=== PATIENT | male | born 1935 | race Caucasian/White ===

== ENCOUNTER 2017-02-09 01:53 | Inpatient (IN) | payer OTHER, MEDICARE ==
[~2017-02-09] VITALS: Ht 188 cm; Wt 99.8 kg
[~2017-02-09 01:53] MED LIST: ACCUPRIL40 M1 PO; ASPIRIN EC81 M1 PO; COUMADIN; NOVOLIN R100 UNIT/1; NOVOLOG100 UNIT/2; SIMVASTATIN20 M2 PO
--- NOTE | 2017-02-09 16:23 | Admission Core Measures ---
Acute Coronary Syndrome Inclusion Criteria ACS Diagnosis No Inpatient Core Measures LDL Reminder: If No, please order W/I first 24hr of stay Congestive Heart Failure Inclusion Criteria CHF Diagnosis No Cerebrovascular accident Inclusion Criteria CVA/TIA Diagnosis No Inpatient Core Measures Bedside Swallow Eval Reminder: If BSE failed, place ST order Antithrombotic Reminder: Order Antithrombotic Medication by end of day 2 Antithrombotic Reminder: Document Reason Antithrombotic Not ordered by end of day 2 AFIB/Flutter Reminder: If Present, add to problem list AFIB/Flutter Reminder: Order Anticoag Medication for pts with AFIB/Flutter Atherosclerosis Reminder: If Present, add to problem list LDL Reminder: If No, please order W/I first 24hr of stay PT Order Reminder: If No, please order Venous thromboembolism Inpatient Core Measures VTE Risk Factors: Age > 40, [facility] prophylaxis d/t No contraindications No VTE Pharm Prophylaxis d/t No contraindications Inclusion Criteria - Per Current guidelines, there needs to be overlap - treatment for the first 5 days of Warfarin therapy. - Parenteral Anticoagulation (IV or SC) needs to be - given along with Warfarin therapy. VTE Diagnosis No VTE Type NONE VTE Confirmed by (Test) NONE Problem List As ranked by this Provider includes Assessment & Plan 1. Sick sinus syndrome 2. Pacemaker 3. Diabetes 4. Hypertension HOME MEDS Home Med List Aspirin (Ecotrin*) 81 MG TABLET.DR 1 TAB PO DAILY CAD (Reported) Quinapril HCl (Accupril) 40 MG TABLET 1 TAB PO DAILY HTN (Reported) Simvastatin (Simvastatin*) 20 MG TABLET 1 TAB PO QPM CHOLESTEROL (Reported)
--- NOTE | 2017-02-09 16:43 | RADIOLOGY REPORT ---
EXAMINATION: XR PORTABLE CHEST CLINICAL INFORMATION: Follow-up pacemaker insertion. COMPARISON: Fluoroscopic view from the operating room. TECHNIQUE: Portable 75 degrees AP view of the chest was obtained. FINDINGS: A left prepectoral pacer device is identified with a unipolar lead overlying the right ventricle. The heart appears enlarged with extensive atherosclerotic calcification of the aortic arch. Lung volumes are diminished with diffuse increase in interstitial markings, a small left-sided pleural effusion probable, and cephalization of the pulmonary vasculature suggesting underlying pulmonary edema. There is moderate symmetric biapical pleural thickening bilaterally. There is no evidence of pneumothorax. Included osseous structures appear largely unremarkable. IMPRESSION: Status post pacer as noted with low lung volumes and cardiomegaly with suspected pulmonary edema.
[2017-02-09 17:54] VITALS: BP 136/80
--- NOTE | 2017-02-09 20:59 | PN- Thoracic Surgery ---
Subjective Subjective: POST-OP NOTE: No complaints. No shortness of breath. No chest pains. Tolerating diabetic diet. No nausea. Voided without difficulty. 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 EKG and chest xray done in pacu. Objective Vital Signs and I&Os Vital Signs Date Time Temp Pulse Resp B/P B/P Pulse O2 O2 Flow FiO2 Mean Ox Delivery Rate 02/09 1754 97.6 81 20 136/80 95 Room Air Physical Exam: General - alert & oriented x 3. comfortable. no acute distress. Lungs - clear bilaterally. no w/r/r. Cardiac - s1s2. irreg irreg. Chest dressing c/d/i. Abdomen - soft. nontender. Extremities - warm bilaterally. no c/c/e. left arm in sling. Results Recent Imaging Studies: EXAMINATION: XR PORTABLE CHEST CLINICAL INFORMATION: Follow-up pacemaker insertion. COMPARISON: Fluoroscopic view from the operating room. TECHNIQUE: Portable 75 degrees AP view of the chest was obtained. FINDINGS: A left prepectoral pacer device is identified with a unipolar lead overlying the right ventricle. The heart appears enlarged with extensive atherosclerotic calcification of the aortic arch. Lung volumes are diminished with diffuse increase in interstitial markings, a small left-sided pleural effusion probable, and cephalization of the pulmonary vasculature suggesting underlying pulmonary edema. There is moderate symmetric biapical pleural thickening bilaterally. There is no evidence of pneumothorax. Included osseous structures appear largely unremarkable. IMPRESSION: Status post pacer as noted with low lung volumes and cardiomegaly with suspected pulmonary edema. DICTATED BY: ALESSIA EAGLE MD DATE/TIME DICTATED:02/09/171636 MERCHANDISE DISTRIBUTOR:MARILU DATE/TIME TRANSCRIBED:02/09/171636 Assessment/Plan Assessment/Plan This 80 year old male with hx htn, iddm, afib, is POD#0 s/p pacemaker for sick sinus syndrome tolerating diabetic diet. d/c iv fluids ekg and cxr reviewed pedro-operative antibiotics, ancef x 2 doses hep sc - dvt ppx hold coumadin for now. restart as per accuchecks / ss coverage f/u labs and ekg in am ?call will d/w Core Measures/Miscellaneous Venous Thromboembolism VTE Risk Factors: Age > 40, Surgery VTE Contraindications: No Contraindications VTE Diagnosis: No VTE Type: NONE VTE Confirmed by (Test): NONE Beta Noni Is Beta Noni a Home Med? No Antibiotics Is Patient on Antibiotics? Yes If Yes: prophylaxis
--- NOTE | 2017-02-09 21:31 | RADIOLOGY REPORT ---
EXAMINATION:\H\ \N\XR CHEST CLINICAL INFORMATION: Pacemaker insertion COMPARISON: None TECHNIQUE: Portable AP FINDINGS: Pacer wire overlies right ventricle. There is no pneumothorax. Exam is demonstrating vascular congestion/early CHF. Left basilar opacities and right basilar opacities may be related to edema IMPRESSION: Pacer wire overlying the right ventricle. No pneumothorax. Findings suggest CHF
[2017-02-10 00:31] VITALS: BP 146/74
[2017-02-10 07:58] VITALS: BP 136/78
[2017-02-10 08:12] LABS: ABSOLUTE BASOPHIL COUNT 0 /CUMM (0.0-0.2); ABSOLUTE EOSINOPHIL COUNT 0.3 /CUMM (0.0-0.7); ABSOLUTE GRANULOCYTE CT 4.2 /CUMM (1.4-6.5); ABSOLUTE LYMPH COUNT 1.7 /CUMM (1.2-3.4); ABSOLUTE MONOCYTE COUNT 0.7 /CUMM (0.10-0.60); BASOPHIL % 0.6 % (0.0-2.0); EOSINOPHIL % 4.5 % (0-5); MEAN CORPUSCULAR HGB 33.4 PG (27.0-31.0); MEAN CORPUSCULAR HGB CONC 33.1 G/DL (33.0-37.0); MEAN CORPUSCULAR VOLUME 100.9 FL (80.0-94.0); PLATELET COUNT 162 /CUMM (130-400); RBC DISTRIBUTION WIDTH 14.9 % (11.5-14.5); RED BLOOD CELL CT 3.37 /CUMM (4.70-6.10); WHITE BLOOD CELL COUNT 6.9 /CUMM (4.8-10.8)
--- NOTE | 2017-02-10 09:57 | PN- Thoracic Surgery ---
Subjective Subjective: Patient is POD #1 s/p pacemaker placement for sick sinus syndrome. Tolerating regular diet. Ambulating without assistance. Pain well controlled. Pacer interrogated this morning with some irregular ventricular capture changes. Objective Vital Signs and I&Os Vital Signs Date Time Temp Pulse Resp B/P B/P Pulse O2 O2 Flow FiO2 Mean Ox Delivery Rate 02/10 0855 89 136/78 02/10 0758 98.3 83 20 136/78 92 Room Air 02/10 0031 98.1 78 16 146/74 94 Room Air 02/09 1754 97.6 81 20 136/80 95 Room Air Intake & Output 02/10 1600 02/10 0800 02/10 0000 02/09 1600 02/09 0800 02/09 0000 Intake Total 300 500 Output Total 600 Balance 300 -100 Intake, IV 100 Intake, Oral 200 500 Output, Urine 600 Patient 220 lb Weight Physical Exam: Gen: AAox3 in NAD Cor: S1+S2+ Lungs: CTA michael. Pressure dressing removed from left anterior chest. Tegaderm dressing intact. No surrounding erythema or drainage noted. No soft tissue mass to suggest hematoma. Abd: soft, NT, ND, +Bs x4 Ext: no edema or calf tenderness to michael lower extremities. Current Medications: Current Medications Sig/George Start time Last Medication Dose Route Stop Time Status Admin Acetaminophen 650 MG Q6PRN PRN 02/09 1745 AC PO Aspirin Buffered 81 MG DAILY 02/10 1000 AC PO Atorvastatin Calcium 10 MG 1700 02/09 1700 AC 02/09 PO 2035 Cefazolin Sodium 2,000 MG Q8H 02/09 2300 DC 02/10 Sodium Chloride 100 ML IV 02/10 0729 0605 Dextrose/Sodium 1,000 ML Q10H 02/09 1745 DC Chloride IV Docusate Sodium 100 MG DAILY 02/10 1000 AC 02/10 PO 0852 Fentanyl Citrate 100 MCG .STK-MED ONE 02/09 1421 DC IM 02/09 1422 Heparin Sodium 5,000 UNIT Q8 02/10 0600 AC 02/10 (Porcine) SC 0605 Insulin Aspart 0 TIDAC 02/10 0800 AC 02/10 SC 0825 Insulin Aspart 0 AT BEDTIME 02/09 2200 AC 02/09 SC 2158 Insulin Human Regular 0 TIDAC/HS 02/09 1700 DC 02/09 SC 1850 Lisinopril 40 MG DAILY 02/10 1000 AC 02/10 PO 0855 Ondansetron HCl 4 MG Q8P PRN 02/09 174 AC IV Oxycodone/ 1 TAB Q4-6 PRN PRN 02/09 174 AC Acetaminophen PO Oxycodone/ 2 TAB Q4-6 PRN PRN 02/09 174 AC Acetaminophen PO Patient Medication 1 UNIT ONE NR 02/09 1800 [facility] ED 02/09 183 Patient Medication 1 UNIT ONE NR 02/09 1800 [facility] ED 02/09 183 Patient Medication 1 UNIT ONE NR 02/09 1800 [facility] ED 02/09 183 Results Last 48 Hours of Labs: Laboratory Tests 02/10 0650 Chemistry Sodium (137 - 145 mmol/L) 141 Potassium (3.5 - 5.1 mmol/L) 5.0 Chloride (98 - 107 mmol/L) 105 Carbon Dioxide (22 - 30 mmol/L) 28 Anion Gap (5 - 16) 9 BUN (9 - 20 mg/dL) 37 H Creatinine (0.7 - 1.2 mg/dL) 2.0 H Estimated GFR (>60 ml/min) 32 L BUN/Creatinine Ratio (7 - 25 %) 18.5 Glucose (65 - 99 mg/dL) 163 H Magnesium (1.6 - 2.3 mg/dL) 1.6 Lxi-H-Vafwvajubyp Pept (<125 pg/mL) 3340 H Hematology CBC w Diff NO MAN DIFF REQ WBC (4.8 - 10.8 /CUMM) 6.9 RBC (4.70 - 6.10 /CUMM) 3.37 L Hgb (14.0 - 18.0 G/DL) 11.3 L Hct (42 - 52 %) 34.0 L MCV (80.0 - 94.0 FL) 100.9 H MCH (27.0 - 31.0 PG) 33.4 H RDW (11.5 - 14.5 %) 14.9 H Plt Count (130 - 400 /CUMM) 162 MPV (7.4 - 10.4 FL) 10.0 Gran % (42.2 - 75.2 %) 61.0 Lymphocytes % (20.5 - 51.1 %) 23.9 Monocytes % (1.7 - 9.3 %) 10.0 H Eosinophils % (0 - 5 %) 4.5 Basophils % (0.0 - 2.0 %) 0.6 Absolute Granulocytes (1.4 - 6.5 /CUMM) 4.2 Absolute Lymphocytes (1.2 - 3.4 /CUMM) 1.7 Absolute Monocytes (0.10 - 0.60 /CUMM) 0.7 H Absolute Eosinophils (0.0 - 0.7 /CUMM) 0.3 Absolute Basophils (0.0 - 0.2 /CUMM) 0 PUBS MCHC (33.0 - 37.0 G/DL) 33.1 Assessment/Plan Assessment/Plan A: POD #1 s/p pacemaker placement for SSS; AVSS. Irregular ventricular captures. Plan: NPO p MN. Will have [employer] interrogate pacer again in am. If ventricular capturing is still off, will need adjustment of leads in OR. Will check CXR now to confirm placement of wires. Plan discussed with patient and Dr. Fields. Core Measures/Miscellaneous Venous Thromboembolism VTE Risk Factors: Age > 40, Surgery VTE Contraindications: No Contraindications VTE Diagnosis: No VTE Type: NONE VTE Confirmed by (Test): NONE Beta Noni Is Beta Noni a Home Med? No Antibiotics Is Patient on Antibiotics? Yes If Yes: prophylaxis
--- NOTE | 2017-02-10 12:28 | Operative Report ---
Operative/Inv Procedure Report Surgery Date: 02/09/17 Name of Procedure: MRI compatible VVI pacemaker Pre-Operative Diagnosis: Symptomatic bradycardia with chronic atrial fibrillation Post-Operative Diagnosis: Same Estimated Blood Loss: less than 50ml Surgeon/Engineering Executive: WES BUCHANAN,OIDN Diaz JR Anesthesia: local monitored anesthesi Operative/Procedure Note Note: After placing monitoring lines the patient's left chest and shoulder were prepped and draped in a sterile fashion. 1% lidocaine was used as local anesthetic. Incision was made in the deltopectoral groove and carried down to prepectoralis fascia. Dissection was done in the groove and there was no cephalic vein isolated. The patient was then placed in Trendelenburg and the subclavian vein was entered with a needle and a wire was passed under fluoroscopic guidance into the right atrium. The sheath dilator was passed over the wire and a Medtronic pacemaker lead model #[id number] was then advanced the pulmonary outflow tract under fluoroscopic guidance. The lead was withdrawn into the right ventricular cavity and positioned at the apex. R waves were measured at 7.8 mV. The pacing threshold was at 0.3 V with a current of 0.2 mA and an impedance of 967 ohms. Leads were secured to the prepectoralis fascia with Ethibond sutures. They were then connected to an MRI compatible single chamber pacemaker. Pacemaker pocket was fashioned over the fascia. It was irrigated with antibiotic irrigation. Hemostasis was achieved with electrocautery and surgical clips. The wound was closed in layers with running Vicryl suture followed by running Vicryl subcuticular suture. The patient tolerated the procedure well and brought to the recovery room in stable condition.
--- NOTE | 2017-02-10 12:29 | PN- Thoracic Surgery ---
Surgical Brief Attending Note Brief Attending Note: Pacemaker interrogation this morning shows an increase in the pacing threshold to 1.6 V with a decline in the R wave sensing. The patient will get a chest x- ray and be reevaluated with interrogation later today and tomorrow morning. If the thresholds remain high then he will need lead repositioning tomorrow. All of this is explained to the patient and the family and they understand and agree.
--- NOTE | 2017-02-10 14:29 | RADIOLOGY REPORT ---
EXAMINATION: XR PORTABLE CHEST CLINICAL INFORMATION: Evaluate placement of ventricular pacer leads. Ventricular capture irregular on interrogation. COMPARISON: 02/09/2017 TECHNIQUE: Portable AP view of the chest was obtained. FINDINGS: Lung volumes are low. The film is underpenetrated. Again seen is a single lead left pectoral pacemaker with a continuous, intact leads. The terminus of the lead projects over the expected location of the right ventricular apex. The course and location of the lead are unchanged from the prior study 02/09/2017. Lung volumes are low. There is worsened dense retrocardiac consolidation which could represent atelectasis, aspiration, or pneumonia. Patchy right base opacity is likely atelectasis. There is prominence of the pulmonary vascularity suggesting mild pulmonary edema. Small pleural effusions are possible. No pneumothorax seen. The cardiac silhouette is enlarged. There are degenerative changes of the shoulders. IMPRESSION: Single lead left pectoral pacemaker. The terminus of the lead projects over the expected location of the right ventricular apex. Low lung volumes. Worsened dense retrocardiac consolidation which could represent atelectasis, aspiration, or pneumonia.
[2017-02-10 15:30] VITALS: BP 134/82
--- NOTE | 2017-02-10 16:21 | Patient Discharge Instructions ---
Discharge Instructions General Discharge Information You were seen/treated for: SICK SINUS SYNDROME You had these procedures: PACEMAKER PLACEMENT Watch for these problems: INCREASED REDNESS OR DRAINAGE, TEMPERATURE GREATER THAN 101F, CHEST PAIN OR SHORTNESS OF BREATH Do not soak the wound: Yes Daily wet to dry dressings: No No bath, but you may shower: Yes Other wound care: Remove plastic dressing and gauze tomorrow. You may shower. Pat area dry, do not rub as it will hurt. Special Instructions: CALL DR PADGETT'S OFFICE REGARDING COUMADIN THERAPY Diet Continue normal diet: Yes Activity Activity Self Limited: Yes (wear L arm sling for comfort) Acute Coronary Syndrome Inclusion Criteria At DC or during hospital stay patient has or had the following: ACS DIAGNOSIS No Discharge Core Measures Meds if any: Prescribed or Continued at Discharge Meds if any: NOT Prescribed or Continued at Discharge Congestive Heart Failure Inclusion Criteria At DC or during hospital stay patient has or had the following: CHF DIAGNOSIS No Discharge Core Measures Meds if any: Prescribed or Continued at Discharge Meds if any: NOT Prescribed or Continued at Discharge Cerebrovascular accident Inclusion Criteria At DC or during hospital stay patient has or had the following: CVA/TIA Diagnosis No Discharge Core Measures Meds if any: Prescribed or Continued at Discharge Meds if any: NOT Prescribed or Continued at Discharge Venous thromboembolism Inclusion Criteria VTE Diagnosis No VTE Type NONE VTE Confirmed by (Test) NONE Discharge Core Measures - Per Current guidelines, there needs to be overlap - treatment for the first 5 days of Warfarin therapy. - If discharged on Warfarin prior to 5 days of - overlap therapy, the patient will need to be - assessed for post discharge needs including - *Post discharge parental anticoagulation - *Warfarin and/or parental anticoagulation education - *Follow up date to check INR post discharge At least 5 days overlap therapy as Inpatient No Meds if any: Prescribed or Continued at Discharge Note: Overlap Therapy is Warfarin and Anticoagulant Meds if any: NOT Prescribed or Continued at Discharge
[2017-02-11 00:52] VITALS: BP 142/68
--- NOTE | 2017-02-11 05:52 | NUR ---
AT APROXIMATELY 0100 PATIENT HAD 6 BEATS V-TACH. VSS, PATIENT DENIES CP. SURGICAL MADDISON ABREU NOTIFIED. BEP WITH MAG ORDERED FOR 4 AM. MG 1.6. 1 GRAM MAG INFUSING ORDERED.
--- NOTE | 2017-02-11 09:06 | RADIOLOGY REPORT ---
EXAMINATION: CHEST 1 VIEW CLINICAL INFORMATION: Status post pacer revision. COMPARISON: 02/10/2017. TECHNIQUE: An AP view of the chest is provided. FINDINGS: The cardiac silhouette is enlarged, but stable. Pacer lead is in unchanged position. The mediastinal and hilar contours are unremarkable. There are neither pleural effusions nor pneumothoraces. There is stable moderate interstitial prominence present throughout both lungs. There are no consolidations. The osseous structures are unremarkable. IMPRESSION: Stable cardiomegaly with pacer leads in place. Stable degree of moderate diffuse interstitial prominence.
--- NOTE | 2017-02-11 09:27 | Operative Report ---
Operative/Inv Procedure Report Surgery Date: 02/11/17 Name of Procedure: Repositioning pacemaker lead Pre-Operative Diagnosis: Symptomatic bradycardia. Failure to capture ventricular lead Post-Operative Diagnosis: Same Estimated Blood Loss: none Surgeon/Oil Developer: WES BUCHANAN,ODIN Diaz JR Anesthesia: local monitored anesthesi Operative/Procedure Note Note: After placement of monitoring lines the patient's incision was reprepped and draped in a sterile fashion. Fluoroscopy showed that the lead appeared to have had some of the slack taken out of it in the intracardiac chamber. The rest of the lead throughout the innominate vena caval was well-positioned. The incision was reopened and the generator explanted. The lead was freed from its ties and a stylette was passed. A slight amount of traction withdrew the lead from the ventricular position. It was repositioned with of more slack of then had been done previously. The lead was tested in this position and the pacing threshold was at 0.5 V R waves were measured at 8.4 mV. The impedance was 646 ohms. The lead was reconnected to the generator and secured once again with Ethibond sutures and the prepectoralis area. Everything was flushed with antibiotic irrigation. There was good hemostasis and electrocautery was used to dry up the soft tissue. The wound was closed with a running deep Vicryl suture followed by running running Vicryl subcuticular suture. It was dressed with a dry sterile dressing and a pressure dressing. The patient tolerated procedure well and was brought to the recovery room in stable condition. In the recovery room the device was re-interrogated and it was found to have the same parameters as in the operating room. A chest x-ray in the recovery room showed an improved heel in the lead with good positioning of the tip.
--- NOTE | 2017-02-11 09:34 | RADIOLOGY REPORT ---
EXAMINATION:\H\ \N\XR CHEST CLINICAL INFORMATION: Pacemaker revision COMPARISON: Chest x-ray of February 11, 2017 and studies dating back to February 09, 2017 TECHNIQUE: Limited AP C-arm film overlying the heart. FINDINGS: Distal aspect of pacer lead is seen overlying the right ventricular outline. IMPRESSION: Distal aspect of the pacemaker lead overlying the right ventricle.
[2017-02-11 16:00] VITALS: BP 130/60
--- NOTE | 2017-02-11 17:14 | PN- Thoracic Surgery ---
Subjective Subjective: Pt is now POD #0 s/p repositioning of pacemaker lead. He was seen earlier this afternoon around 2:45 pm and had no complaints. Denies significant pain. Tolerating po. No nausea. No UE numbness or tingling. Objective Vital Signs and I&Os Vital Signs Date Time Temp Pulse Resp B/P B/P Pulse O2 O2 Flow FiO2 Mean Ox Delivery Rate 02/11 1600 98.2 83 18 130/60 95 Room Air 02/11 1252 98 142/68 02/11 0052 97.7 98 18 142/68 98 Room Air Intake & Output 02/11 1600 02/11 0800 02/11 0000 02/10 1600 02/10 0800 02/10 0000 Intake Total 100 400 560 300 500 Output Total 500 600 Balance -400 400 560 300 -100 Intake, IV 100 100 Intake, Oral 0 400 560 200 500 Output, Urine 500 600 Patient 220 lb Weight Physical Exam: Gen: Pt is awake and alert. NAD. Chest: L chest dressing is c/d/i. There is no visible surrounding echhymosis, erythema. No crepitus. Lungs are cta. Ext: LUE sensation is intact. Hand and arm are warm. Radial pulse is 2+. 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 Assessment/Plan Assessment/Plan Pt is an 86 yo M who is POD #1 s/p placement of permanent pacemaker for Symptomatic bradycardia with chronic atrial fibrillation, complicated by failure to capture ventricular lead. Pt is now POD #0 s/p repositioning of lead. He tolerated the procedure well. Plan: -Continue sling to LUE for immobilization. -Leave surgical dressing in place. -Ok to resume diet. -Percocet or tylenol as needed for pain. -Ancef q12 hours (renal dosing) until discharge due to revision of foreign body. -Ok to resume ASA and home meds. Pt was on Coumadin, but has stated to other staff members that he is supposed to be off of it. Will discuss with cardiology (Dr. Bedolla) in the morning. Core Measures/Miscellaneous Venous Thromboembolism VTE Risk Factors: Age > 40, Surgery VTE Contraindications: No Contraindications VTE Diagnosis: No VTE Type: NONE VTE Confirmed by (Test): NONE Beta Noni Is Beta Noni a Home Med? No Antibiotics Is Patient on Antibiotics? Yes If Yes: prophylaxis
[2017-02-12 00:07] VITALS: BP 122/60
[2017-02-12 08:00] VITALS: BP 118/68
[2017-02-12 08:01] LABS: ABSOLUTE BASOPHIL COUNT 0.1 /CUMM (0.0-0.2); ABSOLUTE EOSINOPHIL COUNT 0.4 /CUMM (0.0-0.7); ABSOLUTE GRANULOCYTE CT 4.5 /CUMM (1.4-6.5); ABSOLUTE LYMPH COUNT 1.8 /CUMM (1.2-3.4); ABSOLUTE MONOCYTE COUNT 0.8 /CUMM (0.10-0.60); BASOPHIL % 0.7 % (0.0-2.0); GRANULOCYTE % 59.9 % (42.2-75.2); HEMATOCRIT 34.4 % (42-52); MEAN CORPUSCULAR HGB 33.6 PG (27.0-31.0); MEAN CORPUSCULAR HGB CONC 33.3 G/DL (33.0-37.0); MEAN CORPUSCULAR VOLUME 100.9 FL (80.0-94.0); MEAN PLATELET VOLUME 10.1 FL (7.4-10.4); PLATELET COUNT 152 /CUMM (130-400); RBC DISTRIBUTION WIDTH 14.8 % (11.5-14.5); RED BLOOD CELL CT 3.41 /CUMM (4.70-6.10); WHITE BLOOD CELL COUNT 7.5 /CUMM (4.8-10.8)
--- NOTE | 2017-02-12 08:02 | PN- Thoracic Surgery ---
Subjective Subjective: POD 1 repositioning pm lead Pt without complaints overnight Denies any cp, sob, palp, nausea Some mild left shoulder pain at surgical site but tolerable without pain meds Objective Vital Signs and I&Os Vital Signs Date Time Temp Pulse Resp B/P B/P Pulse O2 O2 Flow FiO2 Mean Ox Delivery Rate 02/12 0007 98.1 79 18 122/60 95 Room Air 02/12 0000 96 Room Air 02/11 1600 98.2 83 18 130/60 95 Room Air 02/11 1252 98 142/68 Intake & Output 02/12 0800 02/12 0000 02/11 1600 02/11 0800 02/11 0000 02/10 1600 Intake Total 480 240 905 100 400 560 Output Total 300 950 800 Balance 480 -60 -45 -700 400 560 Intake, IV 225 100 Intake, Oral 480 240 680 0 400 560 Number 0 0 Bowel Movements Output, Urine 300 950 800 Physical Exam: General: alert and oriented times three Chest: clear anteriorly bilaterally, irr/irr Abd: soft, good bs Ext: warm, no edema, LUE in sling- positive sensate, good strength Wound: dressed, dry Tele: irr/irr with frequent pvc's, paced beats Assessment/Plan Assessment/Plan 81 yo male s/p ppm placement and repositioning of leads Pt has questions regarding anticoagulation. Has been on coumadin however he is under the impression that Dr Lin's office wanted to start him on a different med post op. Follow up with Dr Lin regarding anticoagulation ?Interrogation of ppm this morning Likely dc later today if all okay Core Measures/Miscellaneous Venous Thromboembolism VTE Risk Factors: Age > 40, Surgery VTE Contraindications: No Contraindications VTE Diagnosis: No VTE Type: NONE VTE Confirmed by (Test): NONE Beta Noni Is Beta Noni a Home Med? No Antibiotics Is Patient on Antibiotics? Yes If Yes: prophylaxis
[2017-02-12] MEDS ORDERED: PERCOCET 5-3251 EACH PO (09:28)
--- NOTE | 2017-02-12 12:32 | NUR ---
LATE ENTRY: PT HAD 3 BEAT RUN AND SURG PA GISELA Butt WAS INFORMED
--- NOTE | 2017-02-21 10:57 | Surgical Discharge Summary ---
Visit Information Visit Dates Admission Date: 02/09/17 Discharge Date: 02/12/17 History of Present Illness Chief Complaint: The patient is admitted with symptomatic bradycardia for placement of a permanent pacemaker lead. 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 Home Who Do You Live With? Spouse What is Your Primary Language? [place] Citizen Review of Systems: He has had episodic lightheadedness when arising quickly and turning his head. He is had no michael syncope. Physical Exam: Breath sounds clear. Irregular rhythm and rate. Hospital Course Course Attending Physician: WES BUCHANAN,ODIN Diaz JR Primary Care Physician: SHARIF BUCHANAN,[facility] Course: Patient was admitted on 421 and underwent placement of an MRI compatible single chamber pacemaker. The procedure was uncomplicated. On the morning of the first postoperative day interrogation showed variable capture and sensing on the lead. A chest x-ray showed no appreciable change in the lead position. On the second postoperative day repeat interrogation was done showing continued instability. The patient was taken back to the operating room on 423 with repositioning of the lead. He remained stable overnight and on interrogation on 02/12/2017 he was found to have a well-functioning device in regards to pacing threshold and sensing. He was then discharged home with follow-up scheduled in 2 weeks in pacemaker clinic as an outpatient. Complications: Lead dislodgment Allergies: Coded Allergies: No Known Allergies (02/07/17) Disposition Summary Disposition Principal Diagnosis: Permanent atrial fibrillation with symptoms Additional Diagnosis: Symptomatic bradycardia Discharge Disposition: home or self care Discharge Instructions General Discharge Information Code Status: Full Code Patient's Diet: Usual Patient's Activity: Normal except minimal use of the left arm for 2 weeks Follow-Up Instructions/Appts: Outpatient pacemaker clinic in 2 weeks Medications at Discharge Discharge Medications: Stop taking the following medications: [COUMADIN] DAILY Continue taking these medications: Quinapril HCl (Accupril) 40 MG TABLET 1 Tablet ORAL DAILY Comments: Last Taken:02/12/17 GIVEN LISINOPRIL Time:1000 Simvastatin (Simvastatin*) 20 MG TABLET 1 Tablet ORAL Every night Comments: Last Taken:02/11/17 Time:5PM Aspirin (Ecotrin*) 81 MG TABLET. 1 Tablet ORAL DAILY Comments: Last Taken:02/12/17 Time:1000 Insulin Regular (Novolin R Inj) 1,000 UNITS/10 ML HANH Instructions: 14 UNITS IN AM .... 8 UNITS IM PM Insulin Aspart (Novolog) 100 UNIT/ML VIAL Instructions: 6 UNITS IM AM..... 14 UNITS IM PM Start taking the following new medications: Oxycodone HCl/Acetaminophen (Percocet 5-325 MG Tablet) 5 MG-325 MG TABLET 1 Tablet ORAL EVERY 4 HOURS NEEDED as needed for PAIN Qty = 20 No Refills
== END 2017-02-12 13:02 | DRG 243 ==
LOC: SDA 01:53 → CANRESERV 16:05 → ENRESERV 16:05 → SDA 17:15 → 1NO 17:42 → ENPENDDIS 02-12 09:33 → 1NO 02-12 13:02
PROVIDERS: Physician Assistant; Physician Assistant Surgical; ADMIT Thoracic Surgery (Cardiothoracic Vascular Surgery)
PROC: 0JH604Z Insertion of Pacemaker, Single Chamber into Chest Subcutaneous Tissue and Fascia, Open Approach (ICD-10-PCS; principal; 2017-02-09)
PROC: 02HK3JZ Insertion of Pacemaker Lead into Right Ventricle, Percutaneous Approach (ICD-10-PCS; principal; 2017-02-09)
PROC: 02WA3MZ Revision of Cardiac Lead in Heart, Percutaneous Approach (ICD-10-PCS; 2017-02-11)
DX: I49.5 Sick sinus syndrome (principal); T82.897A Other specified complication of cardiac prosthetic devices, implants and grafts, initial encounter; I48.2 Chronic atrial fibrillation; E11.9 Type 2 diabetes mellitus without complications; I25.5 Ischemic cardiomyopathy; I25.10 Atherosclerotic heart disease of native coronary artery without angina pectoris; I25.2 Old myocardial infarction; E78.5 Hyperlipidemia, unspecified; Y83.8 Other surgical procedures as the cause of abnormal reaction of the patient, or of later complication, without mention of misadventure at the time of the procedure; Z79.4 Long term (current) use of insulin; I10 Essential (primary) hypertension; Z87.891 Personal history of nicotine dependence
CPT/HCPCS: 1NSP; 36415; 82436; 93005; 93010; C1786; C1898; J0690; J1644; J1815; J2405; J7042

== ENCOUNTER 2018-01-23 16:22 | Inpatient (IN) | payer OTHER, BC, MEDICARE ==
[~2018-01-23] VITALS: Ht 188 cm; Wt 104.8 kg
[~2018-01-23 16:22] MED LIST changes: +PERCOCET 5-3251 EACH PO
--- NOTE | 2018-01-23 18:41 | ED CARDIAC/CP/PALPITATIONS ---
History of Present Illness General Chief Complaint: Abdominal Pain/Flank Pain Stated Complaint: RIGHT SIDE ABD PAIN Source: patient Exam Limitations: no limitations Vital Signs & Intake/Output Vital Signs & Intake/Output Vital Signs Date Time Temp Pulse Resp B/P B/P Pulse O2 O2 Flow FiO2 Mean Ox Delivery Rate 01/23 2213 97.8 82 18 166/77 95 Room Air 01/23 2143 97.8 62 18 184/81 97 01/23 1951 98.0 72 18 169/80 97 Room Air 01/23 1924 97 Room Air 01/23 1643 99.1 73 18 153/98 95 Room Air Allergies Coded Allergies: No Known Allergies (02/07/17) Reconcile Medications Apixaban (Eliquis) 2.5 MG TABLET 1 TAB PO BID BLOOD THINNER (Reported) Aspirin (Ecotrin*) 81 MG TABLET. 1 TAB PO DAILY CAD (Reported) Insulin Aspart (Novolog) 100 UNIT/ML VIAL 6 UNITS SC QAM DM (Reported) Insulin Aspart (Novolog) 100 UNIT/ML VIAL 14 UNITS SC QPM DM (Reported) Insulin Regular, Human (NovoLIN R) 100 UNIT/ML VIAL 14 UNITS SC QAM DM ( Reported) Insulin Regular, Human (NovoLIN R) 100 UNIT/ML VIAL 8 UNITS SC QPM DM ( Reported) Quinapril HCl (Accupril) 40 MG TABLET 1 TAB PO DAILY HTN (Reported) Simvastatin (Simvastatin*) 20 MG TABLET 1 TAB PO QPM CHOLESTEROL (Reported) Triage Note: RECEIVED 82 YO MALE C/O INTERMITTENT RIGHT SIDED CHEST PAIN, STARTED APPROX 12 NOON TODAY. NO SOB OR DIAPHORESIS. PT HAS HAD LEFT LATERAL CHEST PAIN INTERMITTENTLY X FEW WEEKS AND DX WITH STRAIN BY DR MARIE. Triage Nurses Notes Reviewed? yes Onset: Abrupt Duration: hour(s): Quality/Severity: moderate, sharp HPI: Pt is a 82 yo WM with a PMH significant for CAD, DC x 3, atrial fibrillation (on eliquis), skin malignancy s/p excision, who presents to ED with lower right sided chest pain since 12pm today. Pt states the pain is intermittent and sharp. It is not triggered or relieved by anything. The pain does not radiate anywhere. He denies recent strenuous activity or injury to the site. The pt denies any CP, nausea/fevers, anorexia, SOB, abdominal pain, rashes. Pt denies hx of gerd, gallstones, biliary tree issues, or liver disease. He states he has a hx of muscle strains in his back and recently diagnosed with a lower left sided chest muscle strain approximately 3 wks ago. (Emile Estrada) Past History Travel History Traveled to [place] past 21 day No Medical History Any Pertinent Medical History? 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 No (Emile Estrada) Review of Systems Review of Systems Constitutional: Denies: see HPI. EENTM: Denies: see HPI. Respiratory: Reports: cough. Denies: see HPI. Cardiovascular: Reports: see HPI. GI: Denies: see HPI. Genitourinary: Denies: see HPI. Musculoskeletal: Reports: see HPI. Skin: Denies: rash. Neurological/Psychological: Denies: see HPI. Hematologic/Endocrine: Reports: no symptoms. Immunologic/Allergic: Reports: no symptoms. All Other Systems: Reviewed and Negative (Emile Estrada) Physical Exam Physical Exam General Appearance: well developed/nourished, no apparent distress, alert, awake , comfortable Head: atraumatic, normal appearance Eyes: Bilateral: EOMI. Ears, Nose, Throat: normal ENT inspection Neck: normal inspection Respiratory: normal breath sounds, chest non-tender, no respiratory distress, no obvious deformities, masses, rashes to the chest wall. Pain is not reproducible at approx the 11th-12th rib. Cardiovascular: irregularly irregular Gastrointestinal: soft, non-tender, no organomegaly Back: normal inspection, normal range of motion Extremities: normal inspection Neurologic/Psych: no motor/sensory deficits, awake, alert Skin: intact, normal color, warm/dry Core Measures ACS in differential dx? Yes CVA/TIA Diagnosis No Sepsis Present: No Sepsis Focused Exam Completed? No (Emile Estrada) Progress Differential Diagnosis: AMI, aortic dissection, cholecystitis, costochondritis, hyperthyroid, musculoskeletal pain, myocarditis, pancreatitis, pericarditis, pneumonia, pneumothorax, pulmonary embolism, PUD/GERD Plan of Care: Orders Procedure Date/time Status Regular Diet 01/24 B Active TROPONIN LEVEL 01/24 0700 Active EKG 01/24 0700 Active TROPONIN LEVEL 01/24 0100 Active EKG 01/24 0100 Active Pathway - chart 01/23 223 Active House Staff 01/23 223 Active Code Status 01/23 223 Active Intake & Output 01/23 222 Active Patient Data 01/23 2133 Active OXYGEN SETUP (GEN) 01/23 2131 Active Saline Lock 01/23 2131 Active Admit to inpatient 01/23 2131 Active Vital Signs 01/23 2131 Active Activity/Ambulation 01/23 2131 Active Code Status 01/23 2131 Complete Add-on Test (ER Only) 01/23 2050 Active Add-on Test (ER Only) 01/24 2048 Active LIPASE 01/23 185 Complete B-TYPE NATRIURETIC PEP (BNP) 01/23 185 Complete Telemetry/Tilting Saw Operator 01/23 1836 Active TROPONIN LEVEL 01/23 1836 Complete COMPREHENSIVE METABOLIC PANEL 01/23 1836 Complete CBC WITHOUT DIFFERENTIAL 01/23 183 Complete EKG 01/23 1624 Active VTE Mechanical Prophylaxis 01/23 UNK Active Current Medications Sig/George Start time Last Medication Dose Stop Time Status Admin Atorvastatin Calcium 10 MG 1700 01/24 1700 UNVr (Lipitor) Apixaban 2.5 MG BID 01/24 1000 UNVr (Eliquis) Aspirin Buffered 81 MG DAILY 01/24 1000 UNVr (Ecotrin) Lisinopril 10 MG DAILY 01/24 1000 UNVr (Prinivil) Laboratory Tests 01/23/18 1857: Anion Gap 16, Estimated GFR 32 L, BUN/Creatinine Ratio 19.5, Glucose 160 H, Calcium 10.0, Total Bilirubin 0.7, AST 21, ALT 25, Alkaline Phosphatase 68, Troponin I 0.02, Nvn-B-Hbpdxpclwin Pept 6560 H, Total Protein 8.4 H, Albumin 4.3, Globulin 4.1, Albumin/Globulin Ratio 1.0 L, Lipase 56, CBC w Diff NO MAN DIFF REQ, RBC 3.75 L, MCV 100.2 H, MCH 32.5 H, MCHC 32.4 L, RDW 14.5, MPV 9.9, Gran % 56.2, Lymphocytes % 28.9, Monocytes % 11.0 H, Eosinophils % 3.3, Basophils % 0.6, Absolute Granulocytes 4.1, Absolute Lymphocytes 2.1, Absolute Monocytes 0.8 H, Absolute Eosinophils 0.2, Absolute Basophils 0 Diagnostic Imaging: Viewed by Me: Radiology Read. Discussed w/RAD: Radiology Read. Radiology Impression: PATIENT: KATY SANDERS PRESENT AGE: 82 PATIENT ACCOUNT NO: [id number] : 33 LOCATION: [facility] ORDERING PHYSICIAN: Emile WASHBURN SERVICE DATE: 01/23/18 EXAM TYPE: RAD - XRY-CHEST XRAY, TWO VIEWS EXAMINATION: XR CHEST CLINICAL INFORMATION: Chest pain. COMPARISON: Chest x-ray from 02/11/2017. TECHNIQUE: 2 views of the chest were obtained. FINDINGS: Cardiomegaly again evident with a single-lead pacer device in place terminating in the right ventricle. Mediastinal contours are within normal limits. There is diffuse interstitial prominence, also noted on prior imaging. Left retrocardiac region is not assessed. A trace underlying pleural effusion cannot be ruled out. No acute osseous abnormality seen. IMPRESSION: Diffuse interstitial prominence may be chronic or could signify pulmonary venous congestion. Stable cardiomegaly. A trace left-sided pleural effusion cannot be ruled out. DICTATED BY: José Luis Amador MD DATE/TIME DICTATED:01/23/182007 STAFF COUNSELOR:MARILU DATE/TIME TRANSCRIBED:2007 CONFIDENTIAL, DO NOT COPY WITHOUT APPROPRIATE AUTHORIZATION. < Electronically signed in Other Vendor System> SIGNED BY: José Luis Amador MD 01/23/182012 Initial ED EKG: rate (82), AFIB (Emile Estrada) Departure Departure Disposition: STILL A PATIENT Condition: Stable Clinical Impression Primary Impression: Chest pain with high risk for cardiac etiology Referrals: Blake Meier MD (PCP/Family) Departure Forms: Customer Survey General Discharge Information Admission Note Spoke With: Arianne Ruiz MD Documentation of Exam: Documentation of any treatments & extenuating circumstances including Concerns Regarding Discharge (functional status, medication knowledge or non-compliance, living conditions, etc.) that warrant an admission rather than observation: Patient will require cardiac telemetry. Serial troponins. Cardiac consultation. High risk. Intermittent pain with a history of coronary disease and stents. Spoke with cardiology. They agree patient should be admitted. (Emile Estrada) PA/LABORATORY GENETICIST Co-Sign Statement Statement: ED Attending supervision documentation- x I saw and evaluated the patient. I have also reviewed all the pertinent lab results and diagnostic results. I agree with the findings and the plan of care as documented in the PA's/LABORATORY GENETICIST's documentation. CP, high risk [] I have reviewed the ED Record and agree with the PA's/LABORATORY GENETICIST's documentation. [] Additions or exceptions (if any) to the PAs/LABORATORY GENETICIST's note and plan are summarized below: [] (Celestina BUCHANAN,Raymond) Critical Care Note Critical Care Note Critical Care Time: non-applicable (Emile Estrada)
[2018-01-23 19:19] LABS: ABSOLUTE BASOPHIL COUNT 0 /CUMM (0.0-0.2); ABSOLUTE EOSINOPHIL COUNT 0.2 /CUMM (0.0-0.7); ABSOLUTE GRANULOCYTE CT 4.1 /CUMM (1.4-6.5); ABSOLUTE LYMPH COUNT 2.1 /CUMM (1.2-3.4); ABSOLUTE MONOCYTE COUNT 0.8 /CUMM (0.10-0.60); BASOPHIL % 0.6 % (0.0-2.0); EOSINOPHIL % 3.3 % (0-5); GRANULOCYTE % 56.2 % (42.2-75.2); HEMATOCRIT 37.6 % (42-52); MEAN CORPUSCULAR HGB 32.5 PG (27.0-31.0); MEAN CORPUSCULAR HGB CONC 32.4 G/DL (33.0-37.0); MEAN CORPUSCULAR VOLUME 100.2 FL (80.0-94.0); MEAN PLATELET VOLUME 9.9 FL (7.4-10.4); PLATELET COUNT 205 /CUMM (130-400); RBC DISTRIBUTION WIDTH 14.5 % (11.5-14.5); RED BLOOD CELL CT 3.75 /CUMM (4.70-6.10); WHITE BLOOD CELL COUNT 7.3 /CUMM (4.8-10.8)
--- NOTE | 2018-01-23 20:13 | RADIOLOGY REPORT ---
EXAMINATION: XR CHEST CLINICAL INFORMATION: Chest pain. COMPARISON: Chest x-ray from 02/11/2017. TECHNIQUE: 2 views of the chest were obtained. FINDINGS: Cardiomegaly again evident with a single-lead pacer device in place terminating in the right ventricle. Mediastinal contours are within normal limits. There is diffuse interstitial prominence, also noted on prior imaging. Left retrocardiac region is not assessed. A trace underlying pleural effusion cannot be ruled out. No acute osseous abnormality seen. IMPRESSION: Diffuse interstitial prominence may be chronic or could signify pulmonary venous congestion. Stable cardiomegaly. A trace left-sided pleural effusion cannot be ruled out.
[2018-01-23] MEDS ORDERED: NOVOLOG100 UNIT/2 SC ×2 (20:36→20:37)
[2018-01-23] MEDS ORDERED: NOVOLIN R100 UNIT/2 SC ×2 (20:37→20:39)
[2018-01-23] MEDS ORDERED: ELIQUIS2.5 M1 PO (20:41)
--- NOTE | 2018-01-23 21:51 | ULTRASOUND REPORT ---
EXAMINATION: US ABDOMEN LIMITED CLINICAL INFORMATION: 82-year-old male patient with right rib pain. Presumptive diagnosis: Gallstones. COMPARISON: None TECHNIQUE: Real-time imaging of the right upper quadrant abdominal viscera. FINDINGS: PANCREAS: Not well evaluated. LIVER: A technically adequate scan could not be obtained. However, no focal mass lesion is seen. No obvious bile duct dilatation is present. GALLBLADDER: Normal. The gallbladder is physiologically distended without evidence of stones, sludge, polyps, wall thickening or pericholecystic fluid. COMMON BILE DUCT: Normal in caliber measuring 0.3 cm in diameter. RIGHT KIDNEY: There are senescent changes of the right kidney with some cortical atrophy. The kidney measures 12.4 cm in length. A number of cysts are present. There is no hydronephrosis. FREE FLUID: None. IMPRESSION: Normal gallbladder.
--- NOTE | 2018-01-23 22:59 | History & Physical ---
Tod Bhardwaj MD 01/23/18 2435: General Information and HPI MD Statement: I have seen and personally examined KATY SANDERS and documented this H&P. The patient is a 82 year old M who presented with a patient stated chief complaint of right chest pain. Source of Information: patient, old records Exam Limitations: no limitations History of Present Illness: 82 year old male with past medical history signficant for coronary artery disease with myocardial infarction and PCI with stents x 2, chronic kidney disease Stage IIIB, atrial fibrillation on eliquis, symptomatic bradycardia ( sick sinus syndrome?) s/p PPM (01/2017), and insulin dependent diabetes presents with acute onset right sided chest pain. The patient states he was in his usual state of health until suddenly at noon today, he developed severe, sharp, stabbing, "pin prick" pain in his right chest mid axillary line. The pain was intermittent and was having pangs of pain that lasted only a second. He also noticed that his abdomen was distended and he was having frequent belching and flatus although he did not associate this with something he had eaten. Over the course of the afternoon, the pangs of pain became more frequent, occurring up to like every five minutes. He drove himself to the emergency department but says with passing gas his symptoms improved while he was in the waiting room. He reported still having a periodic pain in the emergency department but much less frequently. He states this pain is different from his prior myocardial infarctions which he described as left sided and radiating to the shoulder. He denies any nausea, vomiting, chest pain, pressure, palpitations, arm pain, jaw pain, diaphoresis, or dyspnea. His review of systems was only notable for chronic low back pain and an upper respiratory infection a few months ago. He was evaluted in the emergency department and admitted to telemetry for further management. Allergies/Medications Allergies: Coded Allergies: No Known Allergies (02/07/17) Home Med list Apixaban (Eliquis) 2.5 MG TABLET 1 TAB PO BID BLOOD THINNER (Reported) Aspirin (Ecotrin*) 81 MG TABLET.DR 1 TAB PO DAILY CAD (Reported) Insulin Aspart (Novolog) 100 UNIT/ML VIAL 6 UNITS SC QAM DM (Reported) Insulin Aspart (Novolog) 100 UNIT/ML VIAL 14 UNITS SC QPM DM (Reported) Insulin Regular, Human (NovoLIN R) 100 UNIT/ML VIAL 14 UNITS SC QAM DM ( Reported) Insulin Regular, Human (NovoLIN R) 100 UNIT/ML VIAL 8 UNITS SC QPM DM ( Reported) Quinapril HCl (Accupril) 40 MG TABLET 1 TAB PO DAILY HTN (Reported) Simvastatin (Simvastatin*) 20 MG TABLET 1 TAB PO QPM CHOLESTEROL (Reported) Compliance With Home Meds: GOOD Past History Travel History Traveled to [place] past 21 day No Medical History Neurological: NONE EENT: NONE Cardiovascular: STENTS 02 AF Respiratory: NONE Gastrointestinal: NONE Hepatic: NONE Renal: NONE Musculoskeletal: ARTHRITIS Psychiatric: NONE Endocrine: DIABETIC Blood Disorders: NONE Cancer(s): COLON 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 Ambulation: independent Review of Systems Review of Systems Constitutional: Denies: chills, diaphoresis, fever, malaise. EENTM: Reports: no symptoms. Cardiovascular: Reports: chest pain. Denies: palpitations, peripheral edema, syncope. Respiratory: Denies: cough, hemoptysis, short of breath, sputum production. GI: Reports: bloating, distention. Denies: abdominal pain, constipation, diarrhea, nausea, vomiting. Genitourinary: Denies: dysuria, frequency. Musculoskeletal: Reports: back pain. Skin: Reports: no symptoms. Neurological/Psychological: Reports: no symptoms. Hematologic/Endocrine: Reports: no symptoms. Immunologic/Allergic: Reports: no symptoms. All Other Systems: Reviewed and Negative Exam & Diagnostic Data Last 24 Hrs of Vital Signs/I&O Vital Signs Date Time Temp Pulse Resp B/P B/P Pulse O2 O2 Flow FiO2 Mean Ox Delivery Rate 01/24 0105 98.8 68 20 148/70 92 Room Air 01/24 0016 96.8 78 18 152/70 96 Room Air 01/23 2213 97.8 82 18 166/77 95 Room Air 01/23 2143 97.8 62 18 184/81 97 01/23 1951 98.0 72 18 169/80 97 Room Air 01/23 1924 97 Room Air 01/23 1643 99.1 73 18 153/98 95 Room Air Intake & Output 01/24 0800 01/24 0000 01/23 1600 Intake Total Output Total 1 Balance -1 Output, Urine 1 Patient 104.326 kg Weight Weight Estimated Measurement Method Physical Exam General Appearance Alert, Oriented X3, Cooperative, No Acute Distress Neck Supple, No JVD Cardiovascular Normal S1, Normal S2, 1/6 systolic murmur, irregular rhythm, pacer LCW Lungs Clear to Auscultation, Normal Air Movement Abdomen Normal Bowel Sounds, Soft, No Tenderness, No Masses, distended with tympany on percussion Extremities No Clubbing, No Cyanosis, No Edema, Normal Pulses Last 24 Hrs of Labs/Timur: Laboratory Tests 01/24/18 0100: Troponin I Pending 01/23/18 1857: Anion Gap 16, Estimated GFR 32 L, BUN/Creatinine Ratio 19.5, Glucose 160 H, Calcium 10.0, Total Bilirubin 0.7, AST 21, ALT 25, Alkaline Phosphatase 68, Troponin I 0.02, [id number] Pept 6560 H, Total Protein 8.4 H, Albumin 4.3, Globulin 4.1, Albumin/Globulin Ratio 1.0 L, Lipase 56, CBC w Diff NO MAN DIFF REQ, RBC 3.75 L, MCV 100.2 H, MCH 32.5 H, MCHC 32.4 L, RDW 14.5, MPV 9.9, Gran % 56.2, Lymphocytes % 28.9, Monocytes % 11.0 H, Eosinophils % 3.3, Basophils % 0.6, Absolute Granulocytes 4.1, Absolute Lymphocytes 2.1, Absolute Monocytes 0.8 H, Absolute Eosinophils 0.2, Absolute Basophils 0 Diagnostic Data EKG Results atrial fibrillation with intermittent pacing CXR Results Cardiomegaly again evident with a single-lead pacer device in place terminating in the right ventricle. Mediastinal contours are within normal limits. There is diffuse interstitial prominence, also noted on prior imaging. Left retrocardiac region is not assessed. A trace underlying pleural effusion cannot be ruled out. No acute osseous abnormality seen. Other Results RUQ ultrasound Normal gallbladder. Assessment/Plan Assessment: 82 year old male with past medical history signficant for coronary artery disease with myocardial infarction and PCI with stents x 2, chronic kidney disease Stage IIIB, atrial fibrillation on eliquis, symptomatic bradycardia ( sick sinus syndrome?) s/p PPM (01/2017), and insulin dependent diabetes presents with acute onset right sided chest pain. Chest pain: Right sided chest pain, likely GI origin, but high risk for cardiac etiology Admit to telemetry to monitor for arrhythmia Serial troponins and EKGs to evaluate for myocardial ischemia First troponin 0.02 Cardiology consultation Check an echocardiogram CAD: Continue aspirin and statin CKD: Stage IIIB, currently at baseline, creatinine 2.0 Trend renal function Avoid nephrotoxic agents Can continue ACEi Atrial fibrillation: Continue eliquis 2.5mg PO BID Has PPM, no rate control agents DM: Diabetic diet Accuchecks TIDAC/HS Novolog sliding scale insulin Check hemoglobin A1C Diabetic diet with restricted sodium DVT ppx-on eliquis Full code As Ranked By This Provider Problem List: 1. Chest pain with high risk for cardiac etiology 2. Diabetes 3. Hypertension 4. Pacemaker Core Measures/Misc (07/08) Acute Coronary Syndrome ACS Diagnosis: No Congestive Heart Failure Congestive Heart Failure Diagnosis No Cerebrovascular Accident CVA/TIA Diagnosis: No VTE (View Protocol) VTE Risk Factors Age>40 No Mechanical VTE Prophylaxis d/t N/A MechProphylax Ordered No VTE Pharm Prophylaxis d/t NA PharmProphylax ordered Sepsis (View protocol) Sepsis Present: No Elsa BUCHANNA,[facility] 01/24/18 0108: Resident Review Statement Resident Statement: examined this patient, discussed with international coordinator, agreed with international coordinator Other Findings: HPI: 82-year-old male with PMH of A. fib s/p pacemaker year ago, CAD, AR X3 s/p 2 stents, skin cancer status post resection who presented because of one day of sharp, intermittent, nonradiating, right lower chest pain. Nothing seems to improve or worsened pain. Pain happen every 30 minutes and lasts for a few minutes. He endorses feeling bloated, his pain significantly improved after he passed flatus. He denies shortness breath, palpitation, or cough. He denies nausea, vomiting, fever, or change of bowel habits. On admission: Vitals; BP 150/100, HR 70s, RR 18, Temp 99. Physical exam; HEENT WNL, CVS Nl S1/S2, 1/6 systolic murmur withot rubs or gallop. Resp CTA BL, GI soft, NT/ND, no organomegally X4. Significant lab: H&H 12&37 without leukocytosis. Na, K, Ca are WNL. Glucose 160. Cr of 2 which at base line. LFTs WNL. BNP 6500. Imaging on admission: CXRAY; Stable cardiomegaly with diffuse interstitial prominence may be chronic. Abdominal ultrasound; Normal gallbladder. Assessment 82-year-old male with a significant cardiac history who presented because of the right lower chest pain, his pain most likely GI in origin secondary to being bloated, speech showed a symptom improved after flatus, however given his past medical history ACS need to be ruled out. Microcytosis was noticed on blood workup but he denies alcohol use. #For chest pain we'll * Monitor in telemetry and rule out ACS * Echocardiogram given no documented one in our system * Continue home dose of aspirin and statin * Cardiology consult in a.m. * Would check skin within 1-2 days to rule out shingles For Afib s/p pacemaker we'll * Continue home Eliquis for IDDM we'll * Start diabetic diet * Fingerstick glucose level * NovoLog insulin SS For HTN we'll * Continue home dose of lisinopril For CKD we'll * Continue monitor giving creatinine at baseline -Diabetic diet with 2 g sodium -DVT PPX, on eliquis -FC JosephAbrahamefraín 01/24/18 0302: Attending MD Review Statement Attending Statement Attending MD Statement: examined this patient, discuss w/resident/PA/MECHANICAL DESIGNER, agreed w/resident/PA/MECHANICAL DESIGNER, reviewed EMR data (avail), reviewed images, amended to note Attending Assessment/Plan: CC: Right-sided chest pain PMH: DM, HTN, A. fib with sick sinus, S/P pacemaker, CAD S/P AR S/P stent Patient came to ER for intermittent right-sided chest pain started at noontime. He was on and off, sharp stabbing in nature and subsiding on its own, associated with abdominal distention, pain lasted until 5 PM and then felt better after burping and passing gas. Patient never had similar symptoms in the past, denies any nausea, vomiting, abdominal pain, heartburn, pleuritic nature of chest pain, palpitations, dizziness, skin rashes, different food intake or any antibiotic use, dark color stool. Vitals: Afebrile, pulse in 70s, RR 18, blood pressure 153/98, saturating well on room air. On exam: A O 3, cooperative, obese, no acute distress, neck supple, JVD normal, no lymphadenopathy, mucosa moist, no focal neurological deficit, no dependent edema, no obvious skin rashes or inflammation CVS: S1-S2, RRR 2/6 systolic murmur at apex, loud P2. RS: Clear to auscultate bilaterally. Abdomen: Soft, NT, ND, bowel sounds present. CXR: Diffuse interstitial prominence may be chronic or could signify pulmonary venous congestion. Stable cardiomegaly. A trace left-sided pleural effusion cannot be ruled out. Abdominal ultrasound: Normal gallbladder. Assessment and plan 84-year-old male with multiple comorbidities as mentioned above presented in ER for right-sided chest pain, intermittent, stabbing and sharp in nature, currently resolved. Complete exam unremarkable. No acute ECG changes, creatinine at baseline 2.0, troponin negative, lipase 56 ruling out pancreatitis, total bilirubin 0.7, AST 21, AST 25, alkaline phosphatase 68 and right upper quadrant ultrasound unremarkable ruling out any gallbladder pathology. Given his CAD history he would benefit from ruling out acute coronary syndrome. Cardiology was called from ER suggested admission. + Chest pain rule out ACS + History of DM, HTN, A. fib with sick sinus, S/P pacemaker, CAD S/P AR S/P stent - Admit to telemetry - Continuous telemetry monitoring - Serial troponin and EKGs - 2-D echo in a.m. if significant increase in troponin or if suggested by cardiology - Cardiology consult in a.m. - Continue aspirin, statin - Repeat liver function with other labs in a.m.
[2018-01-24 01:05] VITALS: BP 148/70
--- NOTE | 2018-01-24 03:04 | Admission Certification ---
Admission Certification Certification Statement - As attending physician, I certify that at the time of - admission, based on clinical presentation, severity of - symptoms, need for further diagnostic testing and - therapeutic interventions, and risk of adverse outcomes - without in-hospital treatment, in my clinical assessment, - this patient requires an acute hospital stay for a minimum - of two nights or longer. I have also considered psychsocial - factors such as support system, advanced age, financial - issues, cognitive issues, and failed out-patient treatments, - past re-admission history, safety of patient, and lack of - compliance as applicable. Specific rationale supporting this admission is: Atypical chest pain with a history of CAD
[2018-01-24 07:01] VITALS: BP 130/78
--- NOTE | 2018-01-24 07:53 | PN- Housestaff ---
Ally Horn 01/24/18 0753: Subjective Follow-up For: See problem list in AP Tele-Events Since Last Visit: A-flutter 66-74 Subjective: No overnight event. Patient stated two episodes of very shallow R chest pain non -radiating that last for 30 seconds overnight and had been self-resolving. Had been passing gas and felt better. No other specific complaint. He was awared of his A-flutter on eliquis, and endorsed that he was in a-fib before and was treated with rate control + eliquis by Dr. Bedolla. Review of Systems Constitutional: Reports: see HPI. Objective Last 24 Hrs of Vital Signs/I&O Vital Signs Date Time Temp Pulse Resp B/P B/P Pulse O2 O2 Flow FiO2 Mean Ox Delivery Rate 01/24 0701 99.3 78 20 130/78 94 Room Air 01/24 0105 98.8 68 20 148/70 92 Room Air 01/24 0016 96.8 78 18 152/70 96 Room Air 01/23 2213 97.8 82 18 166/77 95 Room Air 01/23 2143 97.8 62 18 184/81 97 01/23 1951 98.0 72 18 169/80 97 Room Air 01/23 1924 97 Room Air 01/23 1643 99.1 73 18 153/98 95 Room Air Intake & Output 01/24 1600 01/24 0800 01/24 0000 Intake Total 110 Output Total 1 Balance 110 -1 Intake, IV 10 Intake, Oral 100 Output, Urine 1 Patient 104.78 kg 104.326 kg Weight Weight Reported by Patient Estimated Measurement Method Physical Exam General Appearance: Alert, Oriented X3, Cooperative, No Acute Distress Cardiovascular: Regular Rate Lungs: Clear to Auscultation, Normal Air Movement Abdomen: Soft, No Tenderness Neurological: Normal Speech Extremities: No Edema, Normal Pulses Current Medications: Current Medications Sig/George Start time Last Medication Dose Route Stop Time Status Admin Apixaban 2.5 MG BID 01/24 1000 AC PO Apixaban 2.5 MG ONCE ONE 01/23 2345 DC 01/24 PO 01/23 234 0054 Aspirin Buffered 81 MG DAILY 01/24 1000 AC PO Atorvastatin Calcium 10 MG 1700 01/24 1700 AC PO Insulin Aspart 0 TIDAC 01/24 0800 CAN SC Insulin Aspart 0 TIDAC 01/24 0800 AC SC Lisinopril 10 MG DAILY 01/24 1000 AC PO Last 24 Hrs of Lab/Timur Results Last 24 Hrs of Labs/Mics: Laboratory Tests 01/24/18 0630: Sodium Pending, Potassium Pending, Chloride Pending, Carbon Dioxide Pending, Anion Gap Pending, BUN Pending, Creatinine Pending, BUN/Creatinine Ratio Pending , Magnesium Pending, Total Bilirubin Pending, Direct Bilirubin Pending, AST Pending, ALT Pending, Alkaline Phosphatase Pending, Troponin I Pending, Total Protein Pending, Albumin Pending 01/24/18 0100: Troponin I 0.03 01/23/18 1857: Anion Gap 16, Estimated GFR 32 L, BUN/Creatinine Ratio 19.5, Glucose 160 H, Calcium 10.0, Total Bilirubin 0.7, AST 21, ALT 25, Alkaline Phosphatase 68, Troponin I 0.02, Ihp-K-Xfqqdhmkfef Pept 6560 H, Total Protein 8.4 H, Albumin 4.3, Globulin 4.1, Albumin/Globulin Ratio 1.0 L, Lipase 56, CBC w Diff NO MAN DIFF REQ, RBC 3.75 L, MCV 100.2 H, MCH 32.5 H, MCHC 32.4 L, RDW 14.5, MPV 9.9, Gran % 56.2, Lymphocytes % 28.9, Monocytes % 11.0 H, Eosinophils % 3.3, Basophils % 0.6, Absolute Granulocytes 4.1, Absolute Lymphocytes 2.1, Absolute Monocytes 0.8 H, Absolute Eosinophils 0.2, Absolute Basophils 0 Assessment/Plan Assessment: 82 year old male with past medical history signficant for coronary artery disease with myocardial infarction and PCI with stents x 2, chronic kidney disease Stage IIIB, atrial fibrillation on eliquis, symptomatic bradycardia ( sick sinus syndrome?) s/p PPM (01/2017), and insulin dependent diabetes presents with acute onset right sided chest pain. #Right side atypical Chest pain: Right sided chest pain, likely GI origin, but high risk for cardiac etiology Serial troponins and EKGs to evaluate for myocardial ischemia Ekg/Trop x 3 had been negative for NC Appreciated Cardiology consultation, will add meotprolol succinate 25mg qd to med regimen. Pending echocardiogram if needed by cardio #Hx of CAD s/p permanent pacemaker: Continued aspirin and statin #CKD: Stage IIIB, currently at baseline, creatinine 2.0 Trend renal function Avoid nephrotoxic agents Can continue ACEi #Atrial fibrillation/flutter, rate controlled on anticoagulation: Continue eliquis 2.5mg PO BID Has PPM, no rate control agents #Cardiomyopathy w/ EF 45% - will f/u outpatient #Pulmonary fibrosis - From CAT scan in 2013. - Unlikely CHF exacerbation/vascular congestion, Will hold lasix. #IDDM: Diabetic diet Accuchecks TIDAC/HS Novolog sliding scale insulin Check hemoglobin A1C Diabetic diet with restricted sodium DVT ppx-on eliquis Full code Problem List: 1. Chest pain with high risk for cardiac etiology Pain Ratin Pain Location: NA Pain Goal: Remain pain free Pain Plan: see AP Tomorrow's Labs & Rationales: CBC/BEP Lydia Hunt 01/24/18 1041: Attending MD Review Statement Attending Statement Attending MD Statement: examined this patient, discuss w/resident/PA/CREATIVE SERVICES PRODUCER, agreed w/resident/PA/CREATIVE SERVICES PRODUCER, discussed with family, reviewed EMR data (avail), discussed with nursing, discussed with case mgmt, reviewed images, amended to note Attending Assessment/Plan: 82 o/m with pmh of CAD, Afib on eliquis comes with atypical chest pain non cardiac origin in high risk patient. Patient feels better, serial cardiac enzymes negative so far. Patient feeasl better. Cardiology consulted and recommend addition of b colette. Plan for stress test vs cardiac cath as per cardiology in patient vs outpatient. Afib rate controlled. B blcoker + eliquis. GI/dvt prophylaxis full code.
--- NOTE | 2018-01-24 08:55 | Patient Discharge Instructions ---
Discharge Instructions General Discharge Information Special Instructions: - Please follow up with your semiconductor assembler Dr. Bedolla within 1-2 weeks of discharge. - Please follow up with your primary care physician within 1-2 weeks of discharge. Inform your primary care physician of this admission to [facility]. - Continue your current medications per discharge instructions. - Please watch for these problems: Fever, Chills, Nausea, Vomiting, Shortness of Breath, Productive Cough, Chest Pain/Discomfort, Abdominal Pain, Active Bleeding or Bloody urine/stool. Diet Continue normal diet: Yes Recommended Diet: Heart Healthy Activity Full Activity/No Limits: Yes Acute Coronary Syndrome Inclusion Criteria At DC or during hospital stay patient has or had the following: ACS DIAGNOSIS No Discharge Core Measures Meds if any: Prescribed or Continued at Discharge Meds if any: NOT Prescribed or Continued at Discharge Congestive Heart Failure Inclusion Criteria At DC or during hospital stay patient has or had the following: CHF DIAGNOSIS No Discharge Core Measures Meds if any: Prescribed or Continued at Discharge Meds if any: NOT Prescribed or Continued at Discharge Cerebrovascular accident Inclusion Criteria At DC or during hospital stay patient has or had the following: CVA/TIA Diagnosis No Discharge Core Measures Meds if any: Prescribed or Continued at Discharge Meds if any: NOT Prescribed or Continued at Discharge Venous thromboembolism Inclusion Criteria VTE Diagnosis No VTE Type NONE VTE Confirmed by (Test) NONE Discharge Core Measures - Per Current guidelines, there needs to be overlap - treatment for the first 5 days of Warfarin therapy. - If discharged on Warfarin prior to 5 days of - overlap therapy, the patient will need to be - assessed for post discharge needs including - *Post discharge parental anticoagulation - *Warfarin and/or parental anticoagulation education - *Follow up date to check INR post discharge At least 5 days overlap therapy as Inpatient No Meds if any: Prescribed or Continued at Discharge Note: Overlap Therapy is Warfarin and Anticoagulant Meds if any: NOT Prescribed or Continued at Discharge
--- NOTE | 2018-01-24 09:27 | Cons- Cardiology ---
General Information and HPI Consulting Request Date of Consult: 01/24/18 Requested By: Lydia Hunt MD Reason for Consult: Chest pain Source of Information: patient, old records Exam Limitations: no limitations History of Present Illness: 82 year old male with past medical history signficant for coronary artery disease with myocardial infarction and PCI with stents x 2, chronic kidney disease Stage IIIB, atrial fibrillation on eliquis, symptomatic bradycardia ( sick sinus syndrome?) s/p PPM (01/2017), and insulin dependent diabetes presents with acute onset right sided chest pain. The patient states he was in his usual state of health until suddenly at noon today, he developed severe, sharp, stabbing, "pin prick" pain in his right chest mid axillary line. The pain was intermittent and was having pangs of pain that lasted only a second. He also noticed that his abdomen was distended and he was having frequent belching and flatus although he did not associate this with something he had eaten. Over the course of the afternoon, the pangs of pain became more frequent, occurring up to like every five minutes. He drove himself to the emergency department but says with passing gas his symptoms improved while he was in the waiting room. He reported still having a periodic pain in the emergency department but much less frequently. He states this pain is different from his prior myocardial infarctions which he described as left sided and radiating to the shoulder. He denies any nausea, vomiting, chest pain, pressure, palpitations, arm pain, jaw pain, diaphoresis, or dyspnea. His review of systems was only notable for chronic low back pain and an upper respiratory infection a few months ago. He was evaluted in the emergency department and admitted to telemetry for further management. The above information was obtained by the admitting resident. The patient admits that he had sharp lasting for a few seconds right-sided chest discomfort that was increasing in frequency. He is simultaneously expelled gas and noticed that the discomfort seemed to be coming on longer duration. Over the last few weeks he has not had any unusual shortness of breath on exertion nor has he had any chest discomfort on exertion. He saw us in the office on December 20, 2017 for left-sided pain that was clearly muscular and occurred after nearly falling in the bathtub and he had to grab his left arm and stop himself from falling. The discomfort had lasted about 7 days and he was diagnosed with musculoskeletal discomfort. Allergies/Medications Allergies: Coded Allergies: No Known Allergies (02/07/17) Home Med List: Apixaban (Eliquis) 2.5 MG TABLET 1 TAB PO BID BLOOD THINNER (Reported) Aspirin (Ecotrin*) 81 MG TABLET.DR 1 TAB PO DAILY CAD (Reported) Insulin Aspart (Novolog) 100 UNIT/ML VIAL 6 UNITS SC QAM DM (Reported) Insulin Aspart (Novolog) 100 UNIT/ML VIAL 14 UNITS SC QPM DM (Reported) Insulin Regular, Human (NovoLIN R) 100 UNIT/ML VIAL 14 UNITS SC QAM DM ( Reported) Insulin Regular, Human (NovoLIN R) 100 UNIT/ML VIAL 8 UNITS SC QPM DM ( Reported) Quinapril HCl (Accupril) 40 MG TABLET 1 TAB PO DAILY HTN (Reported) Simvastatin (Simvastatin*) 20 MG TABLET 1 TAB PO QPM CHOLESTEROL (Reported) Current Medications: Current Medications Sig/George Start time Last Medication Dose Route Stop Time Status Admin Apixaban 2.5 MG BID 01/24 1000 AC PO Apixaban 2.5 MG ONCE ONE 01/23 2345 DC 01/24 PO 01/23 2346 0054 Aspirin Buffered 81 MG DAILY 01/24 1000 AC PO Atorvastatin Calcium 10 MG 1700 01/24 1700 AC PO Insulin Aspart 0 TIDAC 01/24 0800 CAN SC Insulin Aspart 0 TIDAC 01/24 0800 AC SC Lisinopril 10 MG DAILY 01/24 1000 AC PO Review of Systems Review of Systems Constitutional: Reports: see HPI. EENTM: Denies: no symptoms. Cardiovascular: Reports: see HPI. Respiratory: Denies: no symptoms. GI: Denies: no symptoms. Genitourinary: Denies: no symptoms. Musculoskeletal: Reports: see HPI. Skin: Denies: no symptoms. Neurological/Psychological: Denies: no symptoms. Hematologic/Endocrine: Denies: no symptoms. Immunologic/Allergic: Denies: no symptoms. 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 Home Services at Home: None Smoking Status: Former Smoker ETOH Use: occasional use Functional Ability ADLs Independent: dressing, eating, toileting, bathing. Ambulation: independent Exam & Diagnostic Data Vital Signs and I&O Vital Signs Date Time Temp Pulse Resp B/P B/P Pulse O2 O2 Flow FiO2 Mean Ox Delivery Rate 01/25 0847 70 18 130/82 01/24 0701 99.3 78 20 130/78 94 Room Air 01/24 0105 98.8 68 20 148/70 92 Room Air 01/24 0016 96.8 78 18 152/70 96 Room Air 01/23 2213 97.8 82 18 166/77 95 Room Air 01/23 2143 97.8 62 18 184/81 97 01/23 1951 98.0 72 18 169/80 97 Room Air 01/23 1924 97 Room Air 01/23 1643 99.1 73 18 153/98 95 Room Air Intake & Output 01/24 0801/24 0000 01/23 1600 01/23 0800 01/23 0000 Intake Total 110 Output Total 1 Balance 110 -1 Intake, IV 10 Intake, Oral 100 Output, Urine 1 Patient 231 lb 230 lb Weight Weight Reported by Patient Estimated Measurement Method Physical Exam: On general exam the patient appeared comfortable he just had breakfast Head normocephalic atraumatic Eyes sclera anicteric conjunctiva showed no pallor extraocular muscles are normal Neck no jugular venous distention no thyroid masses no palpable nodes Chest lungs were clear bilaterally Heart regular rhythm 1/6 systolic murmur Abdomen soft no organomegaly bowel sounds normal nontender Extremities no clubbing cyanosis or edema Neurological no gross motor or sensory deficits Labs/Timur Results: Laboratory Tests 01/24 01/24 01/23 0630 0100 1857 Chemistry Sodium (137 - 145 mmol/L) 144 143 Potassium (3.5 - 5.1 mmol/L) 4.4 4.3 Chloride (98 - 107 mmol/L) 108 H 105 Carbon Dioxide (22 - 30 mmol/L) 25 22 Anion Gap (5 - 16) 12 16 BUN (9 - 20 mg/dL) 38 H 39 H Creatinine (0.7 - 1.2 mg/dL) 2.2 H 2.0 H Estimated GFR (>60 ml/min) 29 L 32 L BUN/Creatinine Ratio (7 - 25 %) 17.3 19.5 Glucose (65 - 99 mg/dL) 160 H Calcium (8.4 - 10.2 mg/dL) 10.0 Magnesium (1.6 - 2.3 mg/dL) 1.6 Total Bilirubin (0.2 - 1.3 mg/dL) 0.8 0.7 Direct Bilirubin (< 0.4 mg/dL) 0.4 AST (17 - 59 U/L) 16 L 21 ALT (21 - 72 U/L) 24 25 Alkaline Phosphatase (< 127 U/L) 57 68 Troponin I (<0.11 ng/ml) 0.03 0.03 0.02 [id number] Pept (<125 pg/mL) 6560 H Total Protein (6.3 - 8.2 g/dL) 7.1 8.4 H Albumin (3.5 - 5.0 g/dL) 3.5 4.3 Globulin (1.9 - 4.2 gm/dL) 4.1 Albumin/Globulin Ratio (1.1 - 2.2 %) 1.0 L Lipase (23 - 300 U/L) 56 Hematology CBC w Diff NO MAN DIFF REQ WBC (4.8 - 10.8 /CUMM) 7.3 RBC (4.70 - 6.10 /CUMM) 3.75 L Hgb (14.0 - 18.0 G/DL) 12.2 L Hct (42 - 52 %) 37.6 L MCV (80.0 - 94.0 FL) 100.2 H MCH (27.0 - 31.0 PG) 32.5 H MCHC (33.0 - 37.0 G/DL) 32.4 L RDW (11.5 - 14.5 %) 14.5 Plt Count (130 - 400 /CUMM) 205 MPV (7.4 - 10.4 FL) 9.9 Gran % (42.2 - 75.2 %) 56.2 Lymphocytes % (20.5 - 51.1 %) 28.9 Monocytes % (1.7 - 9.3 %) 11.0 H Eosinophils % (0 - 5 %) 3.3 Basophils % (0.0 - 2.0 %) 0.6 Absolute Granulocytes (1.4 - 6.5 /CUMM) 4.1 Absolute Lymphocytes (1.2 - 3.4 /CUMM) 2.1 Absolute Monocytes (0.10 - 0.60 /CUMM) 0.8 H Absolute Eosinophils (0.0 - 0.7 /CUMM) 0.2 Absolute Basophils (0.0 - 0.2 /CUMM) 0 Diagnostic Data EKG Results VVI Pacemaker. Unserlying atrial fibrillation. CXR Results Diffuse interstitial prominence may be chronic or could signify pulmonary venous congestion. Stable cardiomegaly. A trace left-sided pleural effusion cannot be ruled out. Other Results Abdominal USIMPRESSION: Normal gallbladder. Assessment/Plan Assessment/Plan In summary this 82-year-old gentleman has the following problems 1. Right-sided chest pain occurring for seconds intermittently this discomfort by description is nonanginal. His troponins are negative. EKG is unremarkable as he has a pacemaker and underlying atrial fibrillation. 2. Persistent atrial fibrillation, had a permanent pacemaker due to sick sinus syndrome and is on appropriate anticoagulation 3. Chronic renal insufficiency 4. Coronary artery disease having had previous coronary artery interventions. Serial troponins are negative. There has been no exertional discomfort in the past few weeks or months. 5. Permanent pacemaker 6. Hyperlipidemia 7. Elevated BNP. Chest x-ray reveals chronic changes but gives a differential diagnosis of interstitial congestion. I would add Lasix 20 mg to his current regimen. Given him a slip for electrolytes BUN and creatinine once a week for the next 2 weeks. We will see him in the office within 3 weeks. 8. Diabetes mellitus The patient may be ambulated and discharged from a cardiac standpoint. Consult Acknowledgment - Thank you for your consult request.
--- NOTE | 2018-01-24 10:04 | PN- Cardiology ---
Subjective Subjective: As dictated my consult Addendum Addendum This is an addendum to my consultation done 01/24/2018. Office records reviewed. To summarize this is an 81-year-old gentleman with coronary artery disease status post inferior wall myocardial infarction, LAD occlusion with collaterals, RCA stent, atrial fibrillation rate controlled on anticoagulation, conduction disease, diabetes mellitus, mild cardiomyopathy ejection fraction 45%, chronic renal insufficiency, pulmonary fibrosis per CAT scan done 2013. His chest x-ray changes have been chronic and probably related to pulmonary fibrosis documented by CT scan. Therefore he does not need any diuretics. However his medication list does not include a beta-colette. I would add metoprolol succinate 25 mg once a day to his current regimen. Objective Vital Signs and I&Os Vital Signs Date Time Temp Pulse Resp B/P B/P Pulse O2 O2 Flow FiO2 Mean Ox Delivery Rate 04 0847 70 18 130/82 01/24 0701 99.3 78 20 130/78 94 Room Air 01/24 0105 98.8 68 20 148/70 92 Room Air 01/24 0016 96.8 78 18 152/70 96 Room Air 01/23 2213 97.8 82 18 166/77 95 Room Air 01/23 2143 97.8 62 18 184/81 97 / 1951 98.0 72 18 169/80 97 Room Air 01/23 1924 97 Room Air 01/23 1643 99.1 73 18 153/98 95 Room Air Intake & Output 01/24 1600 01/24 0800 04/ 0000 / 1600 01/23 0800 01/23 0000 Intake Total 110 Output Total 1 Balance 110 -1 Intake, IV 10 Intake, Oral 100 Output, Urine 1 Patient 231 lb 230 lb Weight Weight Reported by Patient Estimated Measurement Method Assessment/Plan Assessment/Plan This is an addendum to my consultation I would add metoprolol succinate 25 mg his current regimen No need for diuretics since his chest x-ray changes are related to pulmonary fibrosis Continue telemetry? Yes
[2018-01-24] MEDS ORDERED: TOPROL XL25 M1 PO ×2 (11:23→13:55)
--- NOTE | 2018-01-24 11:45 | Discharge Summary ---
Visit Information Visit Dates Admission Date: 01/23/18 Discharge Date: 01/24/2018 Hospital Course Course Attending Physician: Lydia Hunt MD Primary Care Physician: Renea BUCHANAN,Blake [facility] Course: Mr. Mcneal is a 82 year old male with past medical history signficant for coronary artery disease with myocardial infarction and PCI with stents x 2, chronic kidney disease Stage IIIB, atrial fibrillation on eliquis 2.5mg twice daily, symptomatic bradycardia (sick sinus syndrome?) s/p PPM (01/2017), and insulin dependent diabetes presents with acute onset right sided chest pain around noon prior to this admission. Pain was intermittent, sharp stabbing in nature, however self resolving, and palpation, associated with abdominal distention. Pain lasted intermittently until 5 PM prior to this admission, and felt better after burping and passing gas. Patient denied previous similar episodes,/nausea/vomiting/heartburn/pleuritic nature of chest pain/palpitations/ dizziness/skin rashes/change of dietary habits/diarrhea/constipation/dark stool. On admission: Vitals; BP 150/100, HR 70s, RR 18, Temp 99. Physical exam; HEENT WNL, CVS NL S1/S2, 1/6 systolic murmur withot rubs or gallop. Resp CTA BL, GI soft, NT/ND, no organomegally X4. Significant lab: H&H 12&37 without leukocytosis. Na, K, Ca are WNL. Glucose 160. Cr of 2 which at base line. LFTs WNL. BNP 6500. CXRAY; Stable cardiomegaly with diffuse interstitial prominence may be chronic. Abdominal ultrasound; Normal gallbladder. This was admitted to telemetry for management of following #Right side atypical Chest pain: Patient was admitted to Telemetry due to strong concerns of symptoms related to high cardiac risk accounting for his past medical history of A-fib/flutter, chief complaint of chest pain, and previous CAD s/p inferior wall TN with LAD collaterals, and RCA stents. Additional concerns including possible CHF exacerbation from previous mild cardiomyopathy w/ EF 45%. Patient had only 2 brief episodes of around 30 seconds of sharp chest pain overnight after admission on the right side, and were self resolving. Troponin/ EKG on admission 3 have been negative. Patient remained in atrial flutter/ fibrillation with a pacemaker however unremarkable EKG as well. Cardiology was consulted and recommended that the right-sided chest pain was not anginal and unlikely to be cardiac related based on in-hospital labs/imagine/physicals. Patient's chest x-ray change have been chronic and probably related pulmonary fibrosis documented by previous CT scan. Therefore patient was not in need of any diuretics as well. Cardiology recommended to add metoprolol 25 mg daily to the current regimen. #Hx of CAD s/p permanent pacemaker: Patient was continued on aspirin and statin #CKD Stage IIIB, currently at baseline, creatinine 2.0 Patient was avoided on nephrotoxic agents and continued on JENNA inhibitor. #Atrial fibrillation/flutter, rate controlled on anticoagulation: Patient was continued on eliquis 2.5mg PO BID, and started metoprolol 25 mg once daily as well #Cardiomyopathy w/ EF 45% Patient was advised to follow-up with Dr. Tye Bedolla in outpatient setting #History of Pulmonary fibrosis Patient will not require any Lasix for diuresis and is not in CHF exacerbation. #IDDM: Patient was kept on diabetic diet, Accu-Cheks 3 times daily before meals/at bedtime, and NovoLog sliding scale. Diabetic diet Diabetic diet with restricted sodium DVT ppx-on eliquis Full code Allergies: Coded Allergies: No Known Allergies (02/07/17) Pertinent Lab Results: SERVICE DATE: 01/23/18 EXAM TYPE: US - US-LIMITED ABDOMEN IMPRESSION: Normal gallbladder. SERVICE DATE: 01/23/18 EXAM TYPE: RAD - XRY-CHEST XRAY, TWO VIEWS IMPRESSION: Diffuse interstitial prominence may be chronic or could signify pulmonary venous congestion. Stable cardiomegaly. A trace left-sided pleural effusion cannot be ruled out. Laboratory Tests 01/24 01/24 01/23 0630 0100 1857 Chemistry Sodium (137 - 145 mmol/L) 144 143 Potassium (3.5 - 5.1 mmol/L) 4.4 4.3 Chloride (98 - 107 mmol/L) 108 H 105 Carbon Dioxide (22 - 30 mmol/L) 25 22 Anion Gap (5 - 16) 12 16 BUN (9 - 20 mg/dL) 38 H 39 H Creatinine (0.7 - 1.2 mg/dL) 2.2 H 2.0 H Estimated GFR (>60 ml/min) 29 L 32 L BUN/Creatinine Ratio (7 - 25 %) 17.3 19.5 Glucose (65 - 99 mg/dL) 160 H Calcium (8.4 - 10.2 mg/dL) 10.0 Magnesium (1.6 - 2.3 mg/dL) 1.6 Total Bilirubin (0.2 - 1.3 mg/dL) 0.8 0.7 Direct Bilirubin (< 0.4 mg/dL) 0.4 AST (17 - 59 U/L) 16 L 21 ALT (21 - 72 U/L) 24 25 Alkaline Phosphatase (< 127 U/L) 57 68 Troponin I (<0.11 ng/ml) 0.03 0.03 0.02 [id number] Pept (<125 pg/mL) 6560 H Total Protein (6.3 - 8.2 g/dL) 7.1 8.4 H Albumin (3.5 - 5.0 g/dL) 3.5 4.3 Globulin (1.9 - 4.2 gm/dL) 4.1 Albumin/Globulin Ratio (1.1 - 2.2 %) 1.0 L Lipase (23 - 300 U/L) 56 Hematology CBC w Diff NO MAN DIFF REQ WBC (4.8 - 10.8 /CUMM) 7.3 RBC (4.70 - 6.10 /CUMM) 3.75 L Hgb (14.0 - 18.0 G/DL) 12.2 L Hct (42 - 52 %) 37.6 L MCV (80.0 - 94.0 FL) 100.2 H MCH (27.0 - 31.0 PG) 32.5 H MCHC (33.0 - 37.0 G/DL) 32.4 L RDW (11.5 - 14.5 %) 14.5 Plt Count (130 - 400 /CUMM) 205 MPV (7.4 - 10.4 FL) 9.9 Gran % (42.2 - 75.2 %) 56.2 Lymphocytes % (20.5 - 51.1 %) 28.9 Monocytes % (1.7 - 9.3 %) 11.0 H Eosinophils % (0 - 5 %) 3.3 Basophils % (0.0 - 2.0 %) 0.6 Absolute Granulocytes (1.4 - 6.5 /CUMM) 4.1 Absolute Lymphocytes (1.2 - 3.4 /CUMM) 2.1 Absolute Monocytes (0.10 - 0.60 /CUMM) 0.8 H Absolute Eosinophils (0.0 - 0.7 /CUMM) 0.2 Absolute Basophils (0.0 - 0.2 /CUMM) 0 Disposition Summary Disposition Principal Diagnosis: #Right side atypical Chest pain #Hx of CAD s/p permanent pacemaker #CKD Stage IIIB #Atrial fibrillation/flutter, rate controlled on anticoagulation: #Cardiomyopathy w/ EF 45% #History of Pulmonary fibrosis #IDDM Additional Diagnosis: as above Discharge Disposition: home or self care Discharge Instructions General Discharge Information Code Status: Full Code Patient's Diet: Heart healthy Patient's Activity: as tolerated Follow-Up Instructions/Appts: - 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 Bedolla within 1-2 weeks of discharge. - Please follow up with your primary care physician within 1-2 weeks of discharge. Inform your primary care physician of this admission to [facility]. - Continue your current medications per discharge instructions. - Please watch for these problems: Fever, Chills, Nausea, Vomiting, Shortness of Breath, Productive Cough, Chest Pain/Discomfort, Abdominal Pain, Active Bleeding or Bloody urine/stool. Medications at Discharge Discharge Medications: Continue taking these medications: Quinapril HCl (Accupril) 40 MG TABLET 1 Tablet ORAL DAILY Comments: not given Simvastatin (Simvastatin*) 20 MG TABLET 1 Tablet ORAL Every night Comments: Last Taken:01/23/18 Time:5PM given as lipitor Aspirin (Ecotrin*) 81 MG TABLET. 1 Tablet ORAL DAILY Comments: Last Taken:01/24/18 Time:0847 Insulin Aspart (Novolog) 100 UNIT/ML VIAL 6 Units Inject into fatty tissue Every Morning Insulin Aspart (Novolog) 100 UNIT/ML VIAL 14 Units Inject into fatty tissue Every night Comments: Last Taken:01/24/18 Time:1250 sliding scale coverage was given Insulin Regular, Human (NovoLIN R) 100 UNIT/ML VIAL 14 Units Inject into fatty tissue Every Morning Comments: not given Insulin Regular, Human (NovoLIN R) 100 UNIT/ML VIAL 8 Units Inject into fatty tissue Every night as needed for dm Comments: not given Apixaban (Eliquis) 2.5 MG TABLET 1 Tablet ORAL TWICE DAILY Qty = 60 Comments: Last Taken:4/5/18 Time:0847 Start taking the following new medications: Metoprolol Succ XL (Toprol XL) 25 MG TAB 25 Milligram ORAL DAILY Qty = 30 No Refills Instructions: . Comments: Last Taken:01/24/18 Time:1250 Copies To: Renea BUCHANAN,Blaek Johnson
[2018-01-24 14:18] VITALS: BP 136/82
== END 2018-01-24 15:15 | DRG 313 ==
LOC: ERH 16:22 → ERHI 21:31 → 1NO 21:31 → ENRESERV 22:58 → 1NO 01-24 00:21 → ENPENDDIS 01-24 13:54 → ENTRNSPT 01-24 15:01 → EDTRNSPT 01-24 15:08 → EDTRNSPTSTS 01-24 15:08 → 1NO 01-24 15:15 → CMPTRNSPT 01-24 15:30
PROVIDERS: Physician Assistant Medical
DX: R07.89 Other chest pain (principal); I25.10 Atherosclerotic heart disease of native coronary artery without angina pectoris; I42.9 Cardiomyopathy, unspecified; I48.1 Persistent atrial fibrillation; E11.22 Type 2 diabetes mellitus with diabetic chronic kidney disease; I48.92 Unspecified atrial flutter; J84.10 Pulmonary fibrosis, unspecified; N18.3 Chronic kidney disease, stage 3 (moderate); I12.9 Hypertensive chronic kidney disease with stage 1 through stage 4 chronic kidney disease, or unspecified chronic kidney disease; I25.2 Old myocardial infarction; E78.5 Hyperlipidemia, unspecified; Z95.5 Presence of coronary angioplasty implant and graft; Z79.01 Long term (current) use of anticoagulants; Z95.0 Presence of cardiac pacemaker; Z79.4 Long term (current) use of insulin; Z87.891 Personal history of nicotine dependence; Z85.820 Personal history of malignant melanoma of skin
CPT/HCPCS: ERO; 36592; 71046; 82436; 93005; 93010